=== PATIENT | male | born 1995 | race Caucasian/White ===

== ENCOUNTER 2018-02-16 17:14 | Emergency (ER) | payer BC ==
[2018-02-16] MEDS ORDERED: Ondansetron HCl/PF 4 MG/2 ML Vial ONE (17:22)
== END 2018-02-16 19:03 | disposition home or self-care (01) ==
LOC: ERS 17:14
DX: F10.129 Alcohol abuse with intoxication, unspecified (principal)
CPT/HCPCS: 96374; J2405